=== PATIENT | male | born 1980 | race Caucasian/White ===

== ENCOUNTER → 2017-09-02 | Outpatient (CLI) | payer BC, OTHER | END | disposition home or self-care (01) | LOC: C.LABSPEC 17:00 | PROVIDERS: ATTEND Podiatrist Primary Podiatric Medicine | DX: B35.1 Tinea unguium (principal) ==

== ENCOUNTER → 2017-09-16 | Outpatient (CLI) | payer BC ==
--- NOTE | 2017-09-16 09:00 | DIAGNOSTIC IMAGING REPORT ---
CT SCAN OF THE PARANASAL SINUSES CLINICAL HISTORY: Chronic sinusitis. COMPARISON STUDY: No priors. TECHNIQUE: High-resolution CT scan of the paranasal sinuses is performed. Images are reviewed in the axial, sagittal, and coronal planes. IV contrast was not administered for this examination. The examination is performed using the fusion protocol. A dose lowering technique was utilized adhering to the principles of ALARA. CT DOSE: 665.17 mGy.cm FINDINGS: Postoperative change: There are postoperative changes from bilateral maxillary antrectomy with antrostomy formation. There is also ethmoid sinus resection. Maxillary antra: There are polyps versus retention cysts present within the maxillary antra. The largest on the right measures up to 3.3 cm and the largest on the left measures up to 2.7 cm. Anterior ethmoid sinuses: Mild to moderate mucosal thickening seen bilaterally. Posterior ethmoid sinuses: Trace mucosal thickening is seen bilaterally. Sphenoid sinuses: Trace mucosal thickening is seen bilaterally. Frontal sinuses: Mild mucosal thickening is seen bilaterally. Ostiomeatal complexes: The antrostomies are widely patent bilaterally. Frontoethmoidal and sphenoethmoidal recesses: The sphenoethmoidal recesses are significant narrowing by mucosal thickening but remain patent. The frontoethmoidal recesses are nearly occluded. Carotid arteries: The carotid arteries are covered and without septal attachments. Ethmoid roofs: There is slightly asymmetric elevation of the right ethmoid roof as compared to the left. Nasal turbinates: The middle nasal turbinates are surgically absent. Nasal septum: There is minimal leftward deviation of the bony nasal septum. Optic nerves: Covered. Orbits: The bony orbits are intact. Orbital contents are normal in appearance. Calvarium: The imaged calvarium is normal in appearance Mastoid air cells: Well pneumatized. Brain parenchyma: Partially visualized brain parenchyma is within normal limits. IMPRESSION: Postoperative change and paranasal sinus disease as above. Electronically signed by: Pranay Rod M.D. 09/16/2017 8:59 AM Dictated Date/Time: 09/16/2017 8:54 AM
== END | disposition home or self-care (01) ==
LOC: C.CTS 08:42
DX: J32.9 Chronic sinusitis, unspecified (principal)

== ENCOUNTER → 2017-09-24 | Outpatient (CLI) | payer BC ==
[2017-09-24 10:04] LABS: BASO % 0.2 %; BASO ABS # 0.01 K/uL (0-0.2); EOS % 5.1 %; EOS ABS # 0.25 K/uL (0-0.5); HEMATOCRIT 45.5 % (42-52); HEMOGLOBIN 15.6 g/dL (14.0-18.0); IG# 0.04 K/uL (0.00-0.02); LYMPH % 19.5 %; LYMPH ABS # 0.96 K/uL (1.2-3.4); MEAN CELL VOLUME 80.5 fL (80-100); MEAN CORPUSCULAR HEMOGLOBIN 27.6 pg (25-34); MEAN CORPUSCULAR HGB CONC 34.3 g/dl (32-36); MEAN PLATELET VOLUME 11.1 fL (7.4-10.4); MONO % 8.9 %; MONO ABS # 0.44 K/uL (0.11-0.59); NEUT % 65.5 %; NEUT ABS # 3.23 K/uL (1.4-6.5); PLATELET COUNT 196 K/uL (130-400); RED CELL DISTRIBUTION WIDTH CV 13.8 % (11.5-14.5); RED CELL DISTRIBUTION WIDTH SD 40.4 fL (36.4-46.3); WHITE BLOOD COUNT 4.93 K/uL (4.8-10.8)
[2017-09-24 10:27] LABS: HEMOGLOBIN A1C 5.5 % (4.5-5.6)
[2017-09-24 10:35] LABS: ALBUMIN 3.8 gm/dl (3.4-5.0); ALT/SGPT 39 U/L (12-78); AST/SGOT 16 U/L (15-37); BLOOD UREA NITROGEN 14 mg/dl (7-18); CALCIUM 8.7 mg/dl (8.5-10.1); CARBON DIOXIDE 29 mmol/L (21-32); CREATININE 0.96 mg/dl (0.60-1.40); GLUCOSE 85 mg/dl (70-99); POTASSIUM 4.4 mmol/L (3.5-5.1); SODIUM 138 mmol/L (136-145)
[2017-09-24 10:46] LABS: ALKALINE PHOSPHATASE 94 U/L (45-117); CHOLESTEROL 153 mg/dl (0-200); LDL CHOLESTEROL CALCULATED 94 mg/dl
== END | disposition home or self-care (01) ==
LOC: C.LAB1850 09:05
PROVIDERS: ATTEND Podiatrist Primary Podiatric Medicine
DX: Z00.00 Encounter for general adult medical examination without abnormal findings (principal); Z51.81 Encounter for therapeutic drug level monitoring; Z79.899 Other long term (current) drug therapy; E66.9 Obesity, unspecified; Z83.3 Family history of diabetes mellitus; Z82.49 Family history of ischemic heart disease and other diseases of the circulatory system